=== PATIENT | female | born 1990 | race Caucasian/White ===

== ENCOUNTER 2019-01-29 22:22 | Outpatient (CLI) | payer MEDICAID ==
[~2019-01-29] VITALS: Ht 157.5 cm; Wt 75.5 kg
[~2019-01-29 22:22] MED LIST: BCP TD; REGLAN 10MG10 MG/TAB PO
--- NOTE | 2019-01-29 22:30 | NUR ---
G1 at 31 weeks arrives to unit ambulatory with complaint of severe left flank pain that started around 2100. Pt reports she took extra strength tylenol around 2139 without any relief. Pt states it comes and goes and it feels sharp. Pt denies any abdominal pain, denies leakage of fluid, and denies any vaginal bleeding. Pt oriented to room, call light within reach, bed in low and locked position. EFM and toco explained and applied. Admission assessment started. Vital signs obtained.
[2019-01-29] MEDS ORDERED: PRENATAL MVI (22:55)
[2019-01-29] MEDS ORDERED: TYLENOL 500MG500 MG PO (22:56)
[2019-01-29 23:00] VITALS: BP 110/53; PULSE 81; TEMP 97.8
--- NOTE | 2019-01-29 23:05 | NUR ---
Dr. Tapia on unit, updated on patient status. SVE closed, pt visibly in a lot of pain, unable to palpate contractions. Verbal orders to obtain CBC, CMP, and UA and start INT.
[2019-01-29 23:30] VITALS: TEMP 97.8
[2019-01-29 23:36] LABS: BASO % 0.2 % (0.0-2.0); EOS % 0.3 % (0-4.0); GRAN # 6.5 (1.4-6.5); GRAN % 69.8 % (42.2-75.2); HEMOGLOBIN 11.7 g/dl (12.5-16.0); LYMPH # 2.1 (1.2-3.4); LYMPH % 21.9 % (20.0-51.0); MEAN CELL VOLUME 86 fl (80.0-100.0); MEAN CORPUSCULAR HEMOGLOBIN 29 pg (27.0-31.0); MEAN CORPUSCULAR HGB CONC 34 g/dl (33.0-37.0); MEAN PLATELET VOLUME 10.5 fl (7.4-10.4); MONO # 0.7 (0.1-0.6); MONO % 7.2 % (1.7-9.3); PLATELET COUNT 312 K/mm3 (130-400); RED BLOOD COUNT 4.04 M/mm3 (4.10-5.30)
[2019-01-29 23:42] LABS: ALBUMIN 3.5 gm/dL (3.5-5.0); BILIRUBIN,TOTAL 0.2 mg/dL (0.0-1.0); CALCIUM 9.8 mg/dL (8.4-10.2); CREATININE, serum 0.42 (0.52-1.25); POTASSIUM 4.2 mmol/L (3.4-5.0); TOTAL PROTEIN 6.8 gm/dL (6.4-8.2)
[2019-01-29 23:44] LABS: HEMATOCRIT 34.9 % (37.0-47.0)
--- NOTE | 2019-01-30 00:10 | NUR ---
Pt took self off of monitors to use restroom. Pt able to leave urine sample and was attempting a bowel movement. SVE when patient returned to bed since patient feeling rectal pressure. SVE closed. Dr. Tapia updated on patient status, verbal orders to give 2 mg of morphine, see orders and MAR.
[2019-01-30 00:21] LABS: COLLECTION METHOD CLEAN CATCH
[2019-01-30 00:26] LABS: MUCOUS Present /lpf; PH 6 (5-8); SQUAMOUS EPITHELIAL 0-2 /hpf; URINE APPEARANCE Hazy; URINE BACTERIA Rare /hpf; URINE BILIRUBIN Negative (NEGATIVE); URINE BLOOD Negative (NEGATIVE); URINE COLOR Yellow; URINE GLUCOSE Negative (NEGATIVE); URINE KETONE Negative (NEGATIVE); URINE LEUKOCYTE ESTERASE Negative (NEGATIVE); URINE NITRATE Negative (NEGATIVE); URINE PROTEIN(semi-quant) Negative (NEGATIVE); URINE UROBILINOGEN Negative (NEGATIVE); URINE WBC 0-2 /hpf
[2019-01-30 01:00] VITALS: BP 120/82; PULSE 85
--- NOTE | 2019-01-30 01:50 | NUR ---
Dr. Tapia at bedside discussing plan of care with patient. Will observe patient until 0300 and reevaluate pain level.
--- NOTE | 2019-01-30 03:20 | NUR ---
Pt sleeping upon entering room, states pain is better and has not returned. SVE unchanged.
--- NOTE | 2019-01-30 03:35 | NUR ---
Pt to be discharged home at this time. Discharge instructions reviewed with patient. Return precautions reviewed, all questions answered. Pt seen ambulating off unit with spouse.
== END 2019-01-30 03:35 | disposition home or self-care (01) ==
LOC: LDRO 22:22
PROVIDERS: Obstetrics & Gynecology
DX: O99.89 Other specified diseases and conditions complicating pregnancy, childbirth and the puerperium (principal); M54.9 Dorsalgia, unspecified; Z3A.31 31 weeks gestation of pregnancy
CPT/HCPCS: J2270

== ENCOUNTER 2019-03-30 09:27 | Inpatient (IN) | payer MEDICAID ==
[~2019-03-30] VITALS: Ht 157.6 cm; Wt 88.6 kg
[~2019-03-30 09:27] MED LIST changes: +PRENATAL MVI; +TYLENOL 500MG500 MG PO
--- NOTE | 2019-03-30 19:00 | NUR ---
1899- Pt arrived on unit for scheduled induction of labor and escorted by significant other and her mother. Pt denies any contractions, leaking of fluid, bleeding and reports normal movement. EFM and toco monitors placed. Vital signs WNL. 1914- Dr. Tolbert at the bedside. SVE /-2. Orders for induction received. Plan of care reviewed. 1929- Consents reviewed and signed. 1939- IV INT placed and labs obtained without complications. 1956- Pt off EFM and up to the bathroom. 2014- Cytotec placed per order. See EMAR for details. Plan of care and precautions reviewed. 2204- Pt off EFM and up to the bathroom.
[2019-03-30 19:30] VITALS: BP 123/77; PULSE 84; TEMP 98.2
[2019-03-30 20:00] VITALS: BP 124/77; PULSE 80
[2019-03-30 20:30] VITALS: BP 151/78; PULSE 81
[2019-03-30 20:38] LABS: EOS % 0.2 % (0-4.0); GRAN # 6.6 (1.4-6.5); HEMOGLOBIN 11.6 g/dl (12.5-16.0); LYMPH # 1.5 (1.2-3.4); LYMPH % 17.1 % (20.0-51.0); MEAN CELL VOLUME 86 fl (80.0-100.0); MEAN CORPUSCULAR HEMOGLOBIN 28 pg (27.0-31.0); MEAN CORPUSCULAR HGB CONC 32 g/dl (33.0-37.0); MEAN PLATELET VOLUME 10.9 fl (7.4-10.4); MONO # 0.7 (0.1-0.6); MONO % 7.4 % (1.7-9.3); PLATELET COUNT 311 K/mm3 (130-400); RED BLOOD COUNT 4.17 M/mm3 (4.10-5.30); REDCELL DISTRIBUTION WIDTH-CV 15.6 % (11.5-14.5)
[2019-03-30 20:39] LABS: HEMATOCRIT 35.9 % (37.0-47.0)
[2019-03-30 21:30] VITALS: BP 144/79; PULSE 85
[2019-03-30 22:00] VITALS: BP 130/66; PULSE 80
[2019-03-31] VITALS (38 sets, daily range): BP systolic 98–136; BP diastolic 46–94; PULSE 74–123; TEMP 97.5–98.6
--- NOTE | 2019-03-31 04:10 | NUR ---
0410- Spoke with Dr. Tolbert. FHR reviewed with recurrent lates after 2 dose of cytotec resolved with position changes and IV fluid bolus. SVE 1-2//-2 also reviewed with difficult exam. Orders to hold 3rd dose of cytotec and start pitocin received. 0415- Plan of care reviewed with PT and SO at the bedside. Both verbalized an understanding, agreed with the plan and state no questions or concerns at this time. 0425- Pitocin started at 2ml/hr per order.
--- NOTE | 2019-03-31 06:20 | NUR ---
Spoke with Dr. Tolbert for a review of FHR tracing. We discussed FHR baseline of 140 but having decels down to 100 for approximately 1 minute and a slow return to baseline. FHR decels occur intermittently. Orders to turn off the pitocin until MD can review strip. Plan of care reviewed with pt. Will continue to monitor.
--- NOTE | 2019-03-31 06:30 | NUR ---
Pitocin off per . Will continue to monitor.
--- NOTE | 2019-03-31 07:45 | NUR ---
Pitocin infusing per protocol and physician order. FHR noted with deceleration down to 80 bpm over 6 1/2 minute with moderate variability. Patient repositioned from wedge left to wedge right. Pitocin stopped, fluid bolus initiated. [place] notified. heart rate returns to spontaneous to 150bpm. Will continue to monitor.
--- NOTE | 2019-03-31 10:59 | NUR ---
Emil Gonzalez CRNA notified of plan for at 1200. due to recurrent late decelerations. Will continue to moniotor.
--- NOTE | 2019-03-31 11:00 | NUR ---
Intermittent lates noted with contractions. FHR down to 100 bpm with moderate varibility and spontaneous return to baseline. Pitocin stopped. will continue to monitor, and prep for .
--- NOTE | 2019-03-31 11:40 | NUR ---
Patient escorted to OR, monitors off, IV fluids infusing.
[2019-04-01 00:20] VITALS: BP 105/55; PULSE 90; TEMP 98.2
[2019-04-01 04:00] VITALS: BP 112/55; PULSE 89; TEMP 97.3
[2019-04-01] MEDS ORDERED: PERCOCET 325 MG1 TA2 PO (07:44)
[2019-04-01] MEDS ORDERED: IBU800 M1 PO (07:44)
[2019-04-01 08:15] VITALS: BP 102/72; PULSE 91; TEMP 97.6
--- NOTE | 2019-04-01 09:21 | NUR ---
Initial visit attempt; Parents were resting, Meter Tester left card of congratulations for the of their son and informed them of the availability of [facility].
[2019-04-01 16:29] VITALS: BP 113/72; PULSE 84; TEMP 97.5
[2019-04-01 20:30] VITALS: BP 123/72; PULSE 111; TEMP 98.8
--- NOTE | 2019-04-01 20:45 | NUR ---
Pt asks "is there anything else you can give me for the pain" Explained to pt that is was too soon for the pain medication to have helped. Pt points to upper abd as source of discomfort, stating "not just the incision". Discussed with pt that gas pain can be very painful and that walking out in hte hallway is the best thing to help with gas discomfort.
--- NOTE | 2019-04-01 21:30 | NUR ---
Pt up walking n hallway, becomes short of breath, assisted into chair at desk. O2 sat 96%, BP 149/88 HR 117. to room via rolling desk chair, gets up into bed without difficulty. Family doting at bedside. 2139 Pt relaxed, cheerful. BP 134/76, HR 120. Mylicon given
[2019-04-02 09:54] VITALS: BP 119/70; PULSE 87; TEMP 97.8
--- NOTE | 2019-04-02 11:30 | NUR ---
Patient did not want to be disturbed.
[2019-04-02 16:51] VITALS: BP 108/65; PULSE 88; TEMP 97.3
[2019-04-02 22:30] VITALS: BP 123/55; PULSE 72; TEMP 98.8
[2019-04-03 07:52] VITALS: BP 118/73; PULSE 91; TEMP 97.8
== END 2019-04-03 13:00 | disposition home or self-care (01) | DRG 788 ==
LOC: LDR 09:27 → OB 18:55 → LDR 18:55 → OB 03-31 16:00
PROVIDERS: ADMIT Student in an Organized Health Care Education/Training Program
PROC: 3E0P7VZ Introduction of Hormone into Female Reproductive, Via Natural or Artificial Opening (ICD-10-PCS; 2019-03-30)
PROC: 10D00Z1 Extraction of Products of Conception, Low, Open Approach (ICD-10-PCS; principal; 2019-03-31)
PROC: 3E033VJ Introduction of Other Hormone into Peripheral Vein, Percutaneous Approach (ICD-10-PCS; 2019-03-31)
DX: O40.3XX0 Polyhydramnios, third trimester, not applicable or unspecified (principal); Z3A.39 39 weeks gestation of pregnancy; Z37.0 Single live birth; O99.344 Other mental disorders complicating childbirth; F41.9 Anxiety disorder, unspecified; F90.9 Attention-deficit hyperactivity disorder, unspecified type; O76 Abnormality in fetal heart rate and rhythm complicating labor and delivery; Z3A.00 Weeks of gestation of pregnancy not specified
CPT/HCPCS: J0690; J1885; J2175; J2250; J2270; J2370; J2405; J2590; J3010; J7120